=== PATIENT | female | born 1955 | race African-American/Black ===

== ENCOUNTER 2025-08-09 12:57 | Outpatient (REF) | payer MEDICARE, SELFPAY ==
[2025-08-09 14:25] LABS: MANUAL DIFF FLAG NO
[2025-08-09 15:05] LABS: Appearance Urine Cloudy; Glucose Urine UA Negative (Negative); PH 5.5 (5.0-9.0); Specific Gravity - Urine 1.015 (1.005-1.025); UMIC TRIGGER UA YES
[2025-08-09 15:09] LABS: Hematocrit 41.4 % (37.0-47.0); Hemoglobin 12.7 g/dl (12.0-16.0); Imm Gran Abs Auto 0.03 X10*3/uL (0.00-0.03); Imm Gran Pct Auto 0.3 % (0.0-0.4); Lymphocytes Absolute Auto 3.3 X10*3/uL (1.2-4.9); Mean Corpuscular HGB Conc 30.7 g/dl (31.0-35.0); Mean Corpuscular Hemoglobin 28.0 pg (27.0-33.0); Mean Corpuscular Volume 91.4 fL (80.0-98.0); NRBC Abs Auto 0.000 X10*3/uL (0.0-0.012); NRBC Pct Auto 0.0 /100WBC (0.0-0.2); Platelet Count 318 X10*3/uL (160-400); Red Blood Count 4.53 X10*6/uL (4.20-5.50); White Blood Count 10.0 X10*3/uL (4.8-10.8)
[2025-08-09 15:37] LABS: Alanine Aminotransferase 12 U/L (0-31); Albumin Level 4.0 g/dL (3.5-5.0); Alkaline Phosphatase 59 U/L (39-117); Anion Gap 11 (12-20); Aspartate Amino Transferase 21 U/L (5-31); Blood Urea Nitrogen 20 mg/dL (9-16); Calcium 9.4 mg/dL (8.4-10.2); Carbon Dioxide 32 mmol/L (22-29); Chloride 103 mmol/L (96-108); Estimated Glomerular Filt Rate 56; Potassium 3.9 mmol/L (3.3-5.1); Sodium 142 mmol/L (135-145); Total Protein 8.1 g/dL (6.5-8.0)
== END 2025-08-09 12:58 | disposition home or self-care (01) ==
LOC: HO.LAB 12:57
PROVIDERS: PCP Internal Medicine; Visit Provider Internal Medicine
DX: E11.9 Type 2 diabetes mellitus without complications (principal); R39.9 Unspecified symptoms and signs involving the genitourinary system; E78.5 Hyperlipidemia, unspecified; I10 Essential (primary) hypertension; R63.5 Abnormal weight gain; M54.31 Sciatica, right side; G47.30 Sleep apnea, unspecified; Z99.89 Dependence on other enabling machines and devices; Z87.440 Personal history of urinary (tract) infections
CPT/HCPCS: 36415; 80053; 81001; 81003; 83036; 83721; 84443; 85025; 87086; 96127

== ENCOUNTER 2025-08-09 12:57 | Outpatient (AMB) | payer MEDICARE, SELFPAY ==
--- NOTE | 2025-08-09 13:01 | MHC.PC.OV ---
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: No Accompanied by: Self / Same As Patient Allergies No Known Allergies Allergy (Verified 08/09/25 13:04) Medication List - Last Reconciled 08/09/25 by Bel Jordan MD aspirin (Adult Low Dose Aspirin) 81 mg PO DAILY atenolol 25 mg PO DAILY lisinopril-hydrochlorothiazide 20-12.5 mg 1 tab PO DAILY simvastatin 20 mg PO BEDTIME tirzepatide (Mounjaro) 15 mg subcut QWEEK Tobacco use date assessed: 08/09/25 Fall risk assessment: No Falls in past year Last assessed Fall Risk: 08/09/25 Dental Screening Dental Screen Date: 08/09/25 Did you have a dental visit in the last 12 months?: No Did you have a dental problem in the last 6 months where you did not have access to dental care?: No HPI HPI Comments History of Present Illness Details The patient is a 70-year-old female presenting to re-critical access hospital care and for management of chronic conditions, including diabetes, weight gain, and new-onset sciatica and symptoms of a urinary tract infection. Type 2 Diabetes Mellitus: The patient is on Mounjaro 15 mg and checks her fasting blood sugars, which have been running between 91 and 123 mg/dL, with a self-reported average of around 103 mg/dL. She denies any episodes of hypoglycemia. Weight gain and digestive issues: The patient reports weight gain, bloating, and constipation, which she notes are side effects of Mounjaro. Her lowest weight was 235 lbs, and she feels she has hit a plateau, which is attributed to limited physical activity due to her sciatica. Her fiber intake is low, though she likes salads and greens. Sciatica: The patient developed right-sided sciatic nerve pain about 2-3 weeks ago without a known precipitating event. The pain has been keeping her up at night and limits her ability to walk. She has tried massage and took one muscle relaxer (cyclobenzaprine) on a previous Friday, which provided some temporary relief. Urinary Tract Infection: For the past 4-5 days, the patient has suspected a UTI, reporting increased urinary frequency, a change in urine odor, and dysuria. These symptoms are also contributing to her poor sleep. Sleep Apnea: The patient has a history of sleep apnea and was prescribed a CPAP machine, but she finds it difficult to use it consistently. She is established with [facility] Medical History (Updated 08/09/25 @ 17:14 by Bel Jordan MD) Urinary symptom or sign Supraventricular tachycardia SHARITA (obstructive sleep apnea) Primary hypertension Hyperlipidemia, unspecified Diabetes mellitus Surgical History (Updated 08/09/25 @ 13:03 by Bel Jordan MD) H/O wrist surgery H/O knee surgery H/O section History of colonoscopy (~09/07/24) Family History (Updated 08/09/25 @ 13:04 by Bel Jordan MD) Other Diabetes mellitus Esophageal cancer Hyperlipidemia, unspecified Primary hypertension Social History Housing: House Patient Tobacco Use Status: Never used Tobacco e-Cigarette/Vaping Use: Never Used service: No Current occupational status: retired Questionnaire PHQ-9 Over the last 2 weeks, how often have you been bothered by any of the following problems? 1. Little interest or pleasure in doing things: several days 2. Feeling down, depressed, or hopeless: several days 3. Trouble falling or staying asleep, or sleeping too much: more than half the days 4. Feeling tired or having little energy: several days 5. Poor appetite or overeating: more than half the days 6. Feeling bad about yourself - or that you are a failure or have let yourself or your family down: not at all 7. Trouble concentrating on things, such as reading the newspaper or watching television: not at all 8. Moving or speaking so slowly that other people could have noticed. Or the opposite - being so fidgety or restless that you have been moving around a lot more than usual: not at all 9. Thoughts that you would be better off or of hurting yourself in some way: not at all Total score: 7 Depression Screening Interpretation: Positive Depression Screening Done: Yes [id number] - PHQ-9 Billing: Yes Source: Developed by Drs. Mike Garg, Ladi Coker, Augustin Barrow and colleagues, with an educational char from [employer]. AUDIT C Alcohol Use Questionnaire (AUDIT-C) 1. How often do you have a drink containing alcohol?: Never 3. How often do you have six or more drinks on one occasion?: Never Total Score: 0 Review of Systems Narrative Review of Systems - Constitutional: Reports weight gain and insomnia. Denies changes in diet such as increased intake of pastries or candies. - Gastrointestinal: Reports bloating and constipation. - Genitourinary: Reports increased urinary frequency, a change in urine odor, and dysuria for the past 4-5 days. - Musculoskeletal: Reports right-sided sciatic nerve pain that started 2-3 weeks ago. - Neurological: Denies pain radiating down the leg. Physical exam (Primary Care) Vital Signs: Last Vital Signs Temp 97.3 F 08/09/25 13:02 Pulse 76 08/09/25 13:02 Resp 16 08/09/25 13:02 BP 126/78 08/09/25 13:48 Pulse Ox 94 08/09/25 13:02 Oxygen Delivery Method Room Air 08/09/25 13:02 BMI result Body Mass Index 40.9 Tobacco/Smoking Status: Tobacco use Status Tobacco use date assessed 08/09/25 08/09/25 13:08 Patient Tobacco Use Status Never used Tobacco 08/09/25 13:08 e-Cigarette/Vaping Use Never Used 08/09/25 13:08 PHQ-9: PHQ-9 Score PHQ-9: Total score 7 08/09/25 13:49 Depression Screening Interpretation: Positive Narrative Physical Exam - Gen: NAD - Chest: CTABL - Card: normal s1, s2, soft murmur across precordium - Abdomen: Soft, not significantly distended, with normal bowel sounds. - Extremities: No edema noted in the lower extremities. - Back: No midline tenderness on palpation. Tenderness noted over the right buttock/paraspinous area. No tenderness on the left. - Musculoskeletal/Neurological: Straight leg raise on the right elicits a slight pull in the buttock area, without radicular pain down the leg. Coding Level of Care Code Est Pt Level 4 (71241) Complex EM visit Add On G2211 Diagnoses Type 2 diabetes mellitus without complication, without long-term current use of insulin E11.9 Diabetes mellitus type: type 2 Diabetes mellitus nursing home insulin use: without nursing home use Diabetes mellitus complication status: without complication Hyperlipidemia, unspecified hyperlipidemia type E78.5 Hyperlipidemia type: unspecified Primary hypertension I10 Urinary symptom or sign R39.9 Additional Codes PHQ-9 - 48685 - PHQ-9 Billing: Yes ([id number]) Assessment & Plan Assessment & Plan (1) Diabetes mellitus: Code(s): E11.9 - Type 2 diabetes mellitus without complications Category: Medical Qualifiers: Diabetes mellitus type: type 2 Diabetes mellitus nursing home insulin use: without nursing home use Diabetes mellitus complication status: without complication Qualified Code(s): E11.9 - Type 2 diabetes mellitus without complications (2) Hyperlipidemia, unspecified: Code(s): E78.5 - Hyperlipidemia, unspecified Category: Medical Qualifiers: Hyperlipidemia type: unspecified Qualified Code(s): E78.5 - Hyperlipidemia, unspecified (3) Primary hypertension: Code(s): I10 - Essential (primary) hypertension Category: Medical (4) Urinary symptom or sign: Code(s): R39.9 - Unspecified symptoms and signs involving the genitourinary system Category: Medical Plan Assessment and Plan 1. Suspected Urinary Tract Infection - The patient presents with a 4-5 day history of urinary frequency, odor, and dysuria. - A urine sample will be collected for urinalysis and culture. - She will be started on empiric Keflex (cephalexin) one capsule twice daily for 7 days, with adjustments to be made based on culture results. 2. Right Sciatica - The patient reports a 2-3 week history of right-sided sciatic pain that is limiting activity and sleep. - A prescription for cyclobenzaprine will be provided to be taken in the evening for 7 days to relax the muscle. - She is advised to use massage and topical patches. - If symptoms do not improve, a referral for physical therapy will be considered. 3. Type 2 Diabetes Mellitus - The patient's self-reported fasting blood sugars are well-controlled (91-123 mg/dL) on Mounjaro 15 mg. Labs, including an A1c, will be ordered to confirm glycemic control. - Continue current Mounjaro dose. 4. Weight Gain and Constipation - These are likely multifactorial, related to side effects of Mounjaro and decreased physical activity from sciatica. - The patient was counseled to increase water intake to 64 oz daily and increase dietary fiber. - She was also encouraged to consider low-impact exercises like water aerobics once her sciatica improves. 5. Hypertension - She will continue her current medications of atenolol and lisinopril/HCTZ. 6. Sleep Disturbances and Sleep Apnea - Insomnia is multifactorial, related to sciatica pain and urinary frequency. - The patient has a CPAP machine but uses it inconsistently. - She was encouraged to use the CPAP machine for at least 4 hours nightly. 7. Medication Management - Refills for her statin medication were addressed. - All other medication refills were reviewed and deemed sufficient for now. - The patient was instructed on how to use the patient portal for future refill requests. Plan - Obtain lab work, including an A1c. - Obtain a urine sample for urinalysis and culture. - Prescribe Keflex (cephalexin) 1 capsule twice daily for 7 days for suspected UTI, pending culture results. - Prescribe cyclobenzaprine to be taken once in the evening for 7 days for sciatica. - Recheck blood pressure. 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 daily and increasing dietary fiber. - Advise on home care for sciatica including massage and use of topical patches. - Recommend low-impact exercise such as water aerobics once sciatica resolves. - Encourage consistent use of CPAP machine for at least 4 hours nightly. - Address medication refills as needed and instruct patient on using the patient portal. - Follow up with patient on urine culture and lab results. Discussion Notes I discussed with the patient her symptoms of a possible urinary tract infection, including the increased frequency, odor, and burning. I explained that we would collect a urine sample for testing and start her on an antibiotic, Keflex, for 7 days in the meantime. I will inform her if any changes are needed based on the culture results. Regarding her right-sided sciatica, I recommended a 7-day course of a muscle relaxer, cyclobenzaprine, to be taken in the evening. I also advised her to continue with massage and consider using topical heat patches. I informed her that if there is no improvement, we would need to consider physical therapy. We reviewed her diabetes management and noted that while her home sugar readings are good, her weight has plateaued and she's experiencing constipation, possibly due to Mounjaro and decreased activity. I recommended increasing her water and fiber intake. I explained that we will be checking an A1c to get a better overall picture of her glucose control. We discussed her inconsistent use of her CPAP machine, and I encouraged her to try using it for at least 4 hours nightly to improve her sleep. Finally, I provided instructions for signing up for the patient portal, which will allow her to see her lab results and message the office directly. Patient Instructions - Please provide a urine sample before you leave the office today. - Please go for lab work after your visit. - Start taking the antibiotic Keflex, one capsule twice a day, for 7 days for your possible urinary infection. You can start this evening. - For your back and leg pain, take one cyclobenzaprine tablet in the evening for the next 7 days. This may make you drowsy. - You can also help your back pain by massaging the area and using a heating pad or ice pack. - Increase your daily water intake to at least 64 ounces. - Increase fiber in your diet by eating more salads, greens, and fruits like apples. - Try to use your sleep apnea (CPAP) machine for at least 4 hours each night. - Once your back pain improves, consider gentle exercises like walking or water aerobics. - We will contact you with your lab and urine results. Please update me on how your pain is progressing. Orders: Orders UA and rflx microscopic Today R39.9 - Unspecified symptoms and signs involving the genitourinary system Comprehensive Met. Panel Today E11.9 - Type 2 diabetes mellitus without complications, E78.5 - Hyperlipidemia, unspecified, I10 - Essential (primary) hypertension LDL Cholesterol Direct Today E11.9 - Type 2 diabetes mellitus without complications, E78.5 - Hyperlipidemia, unspecified, I10 - Essential (primary) hypertension Hemoglobin A1c Today E11.9 - Type 2 diabetes mellitus without complications Urine Culture Today R39.9 - Unspecified symptoms and signs involving the genitourinary system Complete Blood Count Auto Diff Today E11.9 - Type 2 diabetes mellitus without complications, E78.5 - Hyperlipidemia, unspecified, I10 - Essential (primary) hypertension TSH reflex Free T4 Today E11.9 - Type 2 diabetes mellitus without complications, E78.5 - Hyperlipidemia, unspecified, I10 - Essential (primary) hypertension Medications: New cyclobenzaprine 5 mg PO BEDTIME PRN 30 tabs 3RF muscle spasm cephalexin 500 mg PO BID 14 caps 0RF 7 days
[2025-08-09 13:02] VITALS: BP 140/86; PULSE 76; RESP 16; TEMP 36.3; O2SAT 94; BMI 40.9
[2025-08-09 13:48] VITALS: BP 126/78
--- OUTSIDE RECORDS SUMMARY | 2025-08-10 04:26 | XMS_ITS | Clinical Summary ---
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 Name Role Phone Unavailable Primary Care Provider Unavailabl e Social History Tobacco Use Types Packs/Day Years Used Date Smoking Tobacco: Never Assessed Comments Unknown Sex and Gender Information Value Date Recorded Sex Assigned at Not on file Legal Sex Female 3:21 PM EST Gender Identity Not on file Sexual Orientation Not on file Plan of Treatment Health Maintenance Due Date Last Done Comments Breast Cancer Screening 1955 DTaP,Tdap,and Td Vaccines (1 - Tdap) 1976 Pneumococcal Vaccine: 50+ Ye ars (1 of 1 - PCV) 2007 Zoster Vaccines (1 of 2) 2007 Depression Screening 09/22/2024 COVID-19 Vaccine (1 - 2024-2 6 season) 2025 Influenza Vaccine (#1) 2025 RSV Immunization Adult Patie nts (1 - 1-dose 75+ series) 2032 HIB Vaccines Aged Out No longer eligi ble based on patient's age to complete this topic HPV Vaccines Aged Out No longer eligi ble based on patient's age to complete this topic Hepatitis A Vaccines Aged Out No long er eligible based on patient's age to complete this topic Hepatitis B Vaccines Aged Out No long er eligible based on patient's age to complete this topic IPV Vaccines Aged Out No longer eligi ble based on patient's age to complete this topic MMR Vaccines Aged Out No longer eligi ble based on patient's age to complete this topic Meningococcal ACWY Vaccine Aged Out N o longer eligible based on patient's age to complete this topic Meningococcal B Vaccine Aged Out No l onger eligible based on patient's age to complete this topic RSV Immunization Patients Un josee 20 months Aged Out No longer eligible b ased on patient's age to complete this topic Varicella Vaccines Aged Out No longer eligible based on patient's age to complete this topic
== END 2025-08-09 13:52 | disposition home or self-care (01) ==
LOC: HO.HMCHD 12:58
PROVIDERS: PCP Internal Medicine; Visit Provider Internal Medicine
DX: E11.9 Type 2 diabetes mellitus without complications (principal); E78.5 Hyperlipidemia, unspecified; I10 Essential (primary) hypertension; R39.9 Unspecified symptoms and signs involving the genitourinary system